=== PATIENT | female | born 1965 | race Caucasian/White ===

== ENCOUNTER → 2024-05-30 11:24 | Outpatient (REF) | payer BC, SELFPAY | LOC: HWRAD 11:24 | PROVIDERS: ATTENDING PHYSICIAN Physician Assistant Medical | DX: Z12.31 Encounter for screening mammogram for malignant neoplasm of breast (principal); M81.0 Age-related osteoporosis without current pathological fracture | CPT/HCPCS: 77063; 77067; 77080 ==

== ENCOUNTER 2024-06-19 17:55 | Emergency (ER) | payer BC, SELFPAY ==
[2024-06-19 17:57] VITALS: BP 101/49
--- NOTE | 2024-06-19 19:04 | ED.GENMED ---
History of Present Illness
General
Chief Complaint: Musculo-Skeletal Complaint
Time Seen by Provider: 06/19/24 19:04
History of Present Illness
History of Present Illness:
TIME OF INITIAL ENCOUNTER: 7:05 PM
HPI: The patient slipped and fell in the snow just prior to arrival. She complains of right wrist pain. The pain does radiate up toward the right elbow. She denies any other injury. She denies any head trauma. She is known to [facility]
orthopedics from prior injuries.
EXAM:
GENERAL: Well appearing in no distress
CERVICAL SPINE: No midline c-spine tenderness with excellent AROM
HEAD: No evidence of craniofacial trauma
CHEST: No chest wall tenderness, normal heart sounds
LUNGS: Equal lung sounds, no respiratory distress
ABDOMEN: No abdominal tenderness, no peritoneal signs
EXTREMITIES: Deformity noted at the distal right radius, fracture was closed, remainder of extremities exam is unremarkable
NEURO: Excellent strength all extremities, appropriate mental status, normal speech/language
NUMBER AND COMPLEXITY OF PROBLEMS ADDRESSED AT THE ENCOUNTER
� Chronic conditions affecting care: Anxiety, back pain, GERD, IBS
� Acute Exacerbation and/or Progression of Chronic Illness: This is an acute problem
� Differential Diagnosis includes: Distal radius fracture, distal ulnar fracture, forearm fracture
AMOUNT AND/OR COMPLEXITY OF DATA TO BE REVIEWED AND ANALYZED
� I performed an independent evaluation of and my interpretation is:
EKG:
CT:
X-rays: I personally reviewed x-rays and there is a displaced/angulated distal radius fracture
Laboratory Studies:
Other:
� Review of other/old records: I reviewed records, the patient had a colonoscopy in December 2022
� Clinical information was obtained by an independent historian: Son at bedside
� Prescriptions/Medications Considered but not given: I offered and considered narcotic analgesia however the patient declines
� Further testing considered but not performed:
RISK OF COMPLICATIONS AND/OR MORBIDITY OR MORTALITY OF PATIENT MANAGEMENT
� Social determinants of health affecting care: Lives at home
� Discussion with other providers:
� Escalation of care including admission/observation vs risk of discharge considered: I initially reviewed the x-rays and side displaced angulated distal radius fracture. Reduction was performed after hematoma block.
Postreduction films obtained. The patient will follow-up with orthopedics that she is known to [facility] orthopedics.
ANY OTHER UPDATES:
8 PM: I reviewed postreduction images�some improvement with angulation. Patient feels markedly improved.
Past History
Past History
ED Past Medical History: None
ED Past Surgical History: None
Social History
Tobacco: Non-smoker
Phy Exam
Physical Exam
Physical Exam:
See HPI
Course
Orders/Labs/Results
Orders:
Orders
06/19/24 17:56
Wrist, Right 3 Views [CR Wrist - Right Min 3 Views] Urgent
Comment:
Reason For Exam: pain
06/19/24 19:27
Ketorolac [Toradol] 30 mg IM NOW STA
Wrist, Right 2 Views CR [CR Wrist - Right Min 2 Views] Urgent
Comment:
Reason For Exam: post reduction
Vital Signs
Initial and Last Documented VS:
Initial Vital Signs
Temp Pulse Resp BP Pulse Ox
36.7 C 68 18 101/49 99
06/19/24 17:57 06/19/24 17:57 06/19/24 17:57 06/19/24 17:57 06/19/24 17:57
Last Documented Vital Signs
Temp Pulse Resp BP Pulse Ox
36.7 C 68 18 101/49 99
06/19/24 17:57 06/19/24 17:57 06/19/24 17:57 06/19/24 17:57 06/19/24 17:57
Procedures
Joint/Fracture Reduction
Right Wrist:
Indication for procedure:: Displaced angulated fracture
Procedure completed by: OhDr. Ennis
Consent form signed: No
If no, reason: Emergency procedure
Joint reduced: with anesthesia sedation (Patient was given hematoma block)
Anesthesia/sedation: 1% Lidocaine
Injury was: closed
Further treatement: needs further treatment
Post reduction exam: stable
Capillary Refill: normal
Normal distal neurovascular exam?: Yes
*Critical Care Note
Total Time (30-74mins, 75-104mins- exclusive of procedures): Not Applicable
ED Attending Note
-
Portions of this chart may have been created with voice recognition software.� Occasional wrong word or��sound alike� substitutions may have occurred due to the inherent limitations of voice recognition software.
Discharge Plan
Departure
Patient Disposition: Home (Routine Discharge)
Date of Disposition: 06/19/24
Time of Disposition: 19:28
Patient with high blood pressure during this ER visit?: No
Discharge Problem:
Fracture of distal end of radius with dorsal angulation
Instructions: Wrist Fracture (DC)
Prescriptions:
No Action
pantoprazole [Protonix] 20 mg Tablet,Delayed Release (Dr/Ec)
20 mg PO DAILY PRN (Reason: reflux)
ibuprofen 400 mg Tablet
400 mg PO Q8H PRN (Reason: pain)
mometasone [Nasonex] 50 mcg/actuation Willard,Non-Aerosol
2 spray INTRANASAL DAILY PRN (Reason: allergy)
carboxymethylcellulose sodium [Refresh] 1 % Drops, Liquid Gel
1 drp OPHTHALMIC (EYE) TID
sodium chloride 2 % Drops
1 drp OPHTHALMIC (EYE) DAILY PRN (Reason: fuchs corneal dystrophy)
glucosamine-chondroitin [Osteo Bi-Flex] 250-200 mg Tablet
1 tab PO PC
cyclosporine [Restasis] 0.05 % Dropperette
1 drp OPHTHALMIC (EYE) Q12H
ibandronate [Boniva] 150 mg Tablet
150 mg PO QMONTH
Linzess 145 mcg Capsule
145 mcg PO DAILY
cholecalciferol (vitamin D3) [Vitamin D3] 50 mcg (2,000 unit) Capsule
50 mcg PO DAILY
ondansetron [ondansetron] 4 mg tablet,disintegrating
4 mg PO Q8H PRN (Reason: Nausea and Vomiting) 10 Days Qty: 15 0RF
hydrocodone-acetaminophen [hydrocodone-acetaminophen] 5-325 mg tablet
1 - 2 tab PO Q4HPRN PRN (Reason: Mod-severe pain) 7 Days Qty: 30 0RF
Referrals:
Ramez Hunter MD [Active] - Follow up in 2-3 days
Stand Alone Forms: Return to Work
Activity Restrictions/Additional Instructions:
Please follow-up with [facility] orthopedics such as Dr. Hunter. I recommend 3-4 [id number] ibuprofen (Motrin) every 8 hours with food for a few days. Return here if worse or other concerns. You could also take 2 extra strength Tylenol 4
times per day.
Interventions
Interventions:
*General Assessment Last Done: 06/19/24 19:38
*Neglect/Abuse Screening Last Done: 06/19/24 19:38
*ED COVID-19 Vaccine History Last Done: 06/19/24 17:57
ED-Musculoskeletal Assessment Last Done: 06/19/24 19:09
Discharge Date and Time
Print Language: ROMANSH
[2024-06-19] MEDS: TORADOL 30 MG IM (19:40)
[2024-06-19 20:42] VITALS: BP 122/60
[2024-06-19 20:44] VITALS: BP 122/60
== END 2024-06-19 20:44 | disposition home or self-care (01) ==
LOC: EMR 17:55
PROVIDERS: EMERGENCY PHYSICIAN Emergency Medicine; FAMILY PHYSICIAN Physician Assistant Medical
DX: S52.501A Unspecified fracture of the lower end of right radius, initial encounter for closed fracture (principal); W00.0XXA Fall on same level due to ice and snow, initial encounter
CPT/HCPCS: 99283; 25605; 96372; 73100; 73110

== ENCOUNTER → 2024-06-21 08:45 | Outpatient (REF) | payer BC, SELFPAY ==
[2024-06-21 09:54] LABS: % Basophils 0.9 % (0-2); % Eosinophils 2.5 % (0-6); % Immature Granulocytes 0.5 % (0-0.5); % Lymphocytes 18.6 % (20.5-51.1); % Monocytes 7.3 % (1.7-9.3); % Neutrophils 70.2 % (42.2-75.2); Absolute Basophils 0.1 10^3/uL (0-0.2); Absolute Eosinophils 0.2 10^3/uL (0-0.7); Absolute Lymphocytes 1.2 10^3/uL (1.2-3.4); Absolute Monocytes 0.5 10^3/uL (0.1-0.6); Absolute Neutrophils 4.4 10^3/uL (1.4-6.5); Hemoglobin 13.6 g/dL (12.0-16.0); Mean Corp Hgb Conc. 33.2 g/dL (33.0-37.0); Mean Corpuscular Hgb 28.7 pg (27.0-31.0); Mean Corpuscular Volume 86.5 fL (81.0-99.0); Mean Platelet Volume 10.3 fL (7.4-10.4); Nucleated Red Blood Cells % 0 %; Platelet Count 212 10^3/uL (130-400); Red Blood Cell Count 4.74 10^6/uL (4.20-5.40); Red Cell Dist. Width 12.5 % (11.5-14.5); White Blood Cell Count 6.3 10^3/uL (4.8-10.8)
[2024-06-21 10:30] LABS: Blood Urea Nitrogen 11 mg/dl (7-17); Calcium 9.2 mg/dl (8.4-10.2); Carbon Dioxide 30 mmol/L (22-30); Chloride 100 mmol/L (98-107); Glucose 105 mg/dl (70-99); Potassium 3.5 mmol/L (3.5-5.1); Sodium 139 mmol/L (135-145); eGFR > 60.00
== END ==
LOC: RCS 08:45
PROVIDERS: ATTENDING PHYSICIAN Orthopaedic Surgery; FAMILY PHYSICIAN Physician Assistant Medical
DX: Z01.818 Encounter for other preprocedural examination (principal)
CPT/HCPCS: 36415; 80048; 85025; 93005